=== PATIENT | male | born 1960 | race Caucasian/White ===

== ENCOUNTER → 2019-12-10 08:19 | Outpatient (BNVA) | payer OTHER, SELFPAY | PROVIDERS: Family Provider Family Medicine; PCP Family Medicine; Visit Provider Urology | DX: N41.1 Chronic prostatitis (principal); Z12.5 Encounter for screening for malignant neoplasm of prostate; N40.1 Benign prostatic hyperplasia with lower urinary tract symptoms; N13.8 Other obstructive and reflux uropathy | CPT/HCPCS: 81001 ==

== ENCOUNTER 2019-12-23 14:34 | Outpatient (CLI) | payer OTHER, SELFPAY ==
--- NOTE | 2019-12-23 14:40 | XR_ITS ---
WS: [id number] PROCEDURE: XR chest 2V* [id number] CLINICAL INFORMATION: COUGH COMPARISON: None. FINDINGS: Heart: Normal cardiac silhouette. Lungs: Lungs are clear. No consolidation or pleural fluid. Mild chronic emphysematous changes. Bones: Normal visualized bony structures. XR/XR chest 2V* [id number] IMPRESSION: Mild chronic emphysematous changes. No acute pulmonary infiltrates.
== END 2019-12-23 14:35 | disposition home or self-care (01) ==
PROVIDERS: Family Provider Family Medicine; PCP Family Medicine; Visit Provider Family Medicine
DX: R05 Cough (principal); J43.8 Other emphysema
CPT/HCPCS: 71046

== ENCOUNTER 2020-01-07 07:47 | Outpatient (CLI) | payer OTHER, SELFPAY ==
[2020-01-07 08:35] VITALS: O2SAT 98
--- NOTE | 2020-01-07 14:32 | PFTS_ITS ---
Date of Study:01/07/20 Date of Dictation: MECHANICS: Forced vital capacity (FVC) is normal. Forced expiratory volume in one second (FEV1) is normal. FEV1/FVC is normal. FLOW VOLUME LOOP: Normal. LUNG VOLUMES: Total lung capacity (TLC) is normal. Residual volume (RV) is normal. DIFFUSING CAPACITY FOR CARBON MONOXIDE: Normal. INTERPRETATION: The pulmonary function tests are . Lung volumes are normal. Gas exchange (DLCO) is normal. MTDD
== END 2020-01-07 07:48 | disposition home or self-care (01) ==
LOC: RT 07:48
PROVIDERS: PCP Family Medicine; Visit Provider Family Medicine
DX: R05 Cough (principal)
CPT/HCPCS: 94010; 94726; 94729

== ENCOUNTER 2021-07-05 14:41 | Outpatient (CLI) | payer OTHER, SELFPAY ==
[2021-07-05 15:24] LABS: Prostate Specific Antigen Scr 1.28 ng/mL (0-4)
== END 2021-07-05 14:42 | disposition home or self-care (01) ==
LOC: LAB 14:45
PROVIDERS: PCP Family Medicine; Visit Provider Urology
DX: Z12.5 Encounter for screening for malignant neoplasm of prostate (principal)
CPT/HCPCS: G0103

== ENCOUNTER → 2021-07-06 06:53 | Outpatient (BNVA) | payer OTHER, SELFPAY | PROVIDERS: PCP Family Medicine; Visit Provider Urology | DX: N40.1 Benign prostatic hyperplasia with lower urinary tract symptoms (principal) | CPT/HCPCS: 81003 ==

== ENCOUNTER 2022-04-03 09:28 | Outpatient (RCR) | payer OTHER, SELFPAY | END 2022-04-13 23:59 | disposition home or self-care (01) | LOC: SPT 09:28 | PROVIDERS: PCP Family Medicine; Visit Provider Family Medicine | DX: M54.50 Low back pain, unspecified (principal); M47.816 Spondylosis without myelopathy or radiculopathy, lumbar region | CPT/HCPCS: 97110; 97161 ==

== ENCOUNTER 2022-04-14 06:00 | Outpatient (RCR) | payer OTHER, SELFPAY | END 2022-05-07 10:47 | disposition home or self-care (01) | LOC: SPT 06:00 | PROVIDERS: PCP Family Medicine; Visit Provider Family Medicine | DX: M54.50 Low back pain, unspecified (principal); M47.816 Spondylosis without myelopathy or radiculopathy, lumbar region; M47.896 Other spondylosis, lumbar region | CPT/HCPCS: 97110 ==

== ENCOUNTER 2022-05-07 08:21 | Outpatient (CLI) | payer OTHER, SELFPAY ==
--- NOTE | 2022-05-07 08:45 | CT_ITS ---
WS: [id number] CT LUMBAR SPINE TECHNIQUE: Noncontrast CT of the lumbar spine with coronal and sagittal reformatted images. CLINICAL INFORMATION: chronic low back pain COMPARISON: None. DLP: 1429.[address] scans at [facility] use at least one of these dose optimization techniques: automated e xposure control; mA and/or kV adjustment per patient size (includes targeted exams where dose is matc hed to clinical indication); or iterative reconstruction. FINDINGS: Mild lumbar curve. No acute compression. Endplate Schmorl's nodes in the lumbar spine. Disc space veronica rowing worse L5-S1. No acute appearing compression fractures. L1-L2: Mild facet arthropathy. Spinal canal and foramen are patent. No significant disc bulging. L2-L3: Mild facet arthropathy. Spinal canal and foramen are patent L3-L4: Mild annular bulging with a tiny shallow central protrusion. Slight narrowing of the LEFT suba rticular recess. Mild central canal stenosis. Mild LEFT foraminal narrowing. Mild facet arthropathy. L4-L5: Mild annular bulging. Mild central canal stenosis. Mild facet arthropathy ligamentum flavum hy pertrophy. Slight impingement traversing L5 nerve roots bilaterally. Moderate RIGHT foraminal narrowi ng. L5-S1: Disc osteophyte complex with endplate ridging. Moderate LEFT foraminal narrowing with slight i mpingement on the exiting LEFT L5 nerve root. RIGHT foramen is patent. Mild to moderate facet arthrop athy. Adrenal glands are normal. Normal caliber abdominal aorta. Expansile bone remodeling with trabecular thickening RIGHT ilium and ischium unchanged since 2012 lik add[address]. CT/CT lumbar spine wo con* [id number] IMPRESSION: 1. Mild lumbar curve convex LEFT. No acute compression fractures. 2. Mild central canal stenosis L3-L4 with impingement on the LEFT subarticular recess and traversing LEFT L4 nerve root. 3. Mild central canal stenosis L4-L5 with facet arthropathy ligamentum flavum hypertrophy. 4. Moderate bony foraminal narrowing RIGHT L4-L5 and LEFT L5-S1.
== END 2022-05-07 08:22 | disposition home or self-care (01) ==
PROVIDERS: PCP Family Medicine; Visit Provider Family Medicine
DX: M47.816 Spondylosis without myelopathy or radiculopathy, lumbar region (principal); M48.061 Spinal stenosis, lumbar region without neurogenic claudication; M48.07 Spinal stenosis, lumbosacral region
CPT/HCPCS: 72131

== ENCOUNTER 2023-04-09 10:27 | Day surgery (SDC) | payer OTHER, SELFPAY ==
[2023-04-08 12:09] VITALS: BMI 29.9
[2023-04-09] VITALS (9 sets, daily range): BP systolic 116–138; BP diastolic 66–90; PULSE 91–120; RESP 18–24; TEMP 36.3–36.6; O2SAT 92–97; BMI 29.9
[2023-04-09] MEDS: sodium chloride 0.9% 1,000 ML 30 ML IV (11:09)
--- NOTE | 2023-04-09 11:29 | ANES.PREANE2 ---
Pre-Anesthetic Assessment Height/Weight: Height 1.98 m Weight 117.48 kg O2 Del Method Room Air 04/09/23 10:48 Preop Diagnosis: Lower gingival lesion behind incisor Operation Date: 04/09/23 12:00 Proposed Procedures p excision of intraoral gingival lesion-[id number],with frozen section K06.8(Not Applicable) - Terry Chan MD Was Beta Zulay taken within 24 hours: N/A Was Clonidine taken within 24 hours: N/A Last intake: Intake Last Liquid Date 04/08/23 Last Liquid Time 22:00 Last Solid Date 04/08/23 Last Solid Time 22:00 Social Tobacco and No alcohol Chewing tobacco Exam alert, oriented x 3, clear to auscultation bilaterally and regular rate & rhythm Airway Submandibular: within normal limits Cervical ROM: within normal limits Mallampati: Class III History/ROS No significant history except as noted and No significant complaints Pulmonary Sleep Apnea CV/HEM Hypertension GI Gastroesophageal Reflux Disease Anesthetic Plan ASA status: 2 Anesthesia: General Risk of > 500 ml blood loss (7ml/kg in children): No Medications/Allergies Home Medications Medication Instructions Recorded Confirmed Last Taken Type auto titrating cpap #1 ea 03/12/23 03/27/23 Unknown Rx escitalopram oxalate 10 mg tablet 10 mg PO DAILY stress #90 tabs 03/12/23 04/09/23 04/09/23 Rx losartan 50 mg tablet 50 mg PO DAILY 04/08/23 04/08/23 04/08/23 History pantoprazole 40 mg tablet,delayed 40 mg PO DAILY 04/08/23 04/08/23 04/08/23 History release tamsulosin 0.4 mg capsule 0.8 mg PO BEDTIME 04/08/23 04/08/23 04/08/23 History Allergies Allergy/AdvReac Type Severity Reaction Status Date / Time No Known Allergies Allergy Verified 04/08/23 12:03 Current Medications Generic Name Dose Route Start Last Admin Trade Name Freq PRN Reason Stop Dose Admin Sodium Chloride 1,000 mls @ 30 mls/hr 04/09/23 11:00 04/09/23 11:09 Sodium Chloride 0.9% IV 04/10/23 10:59 30 mls/hr .Q24H IVETH Administration PFSH Anesthesia Medical History BPH loc w urin obs/LUTS Chronic prostatitis Hx MRSA infection Screening PSA (prostate specific antigen) Testalgia Surgical History Hx of repair of left rotator cuff Hx of tonsillectomy Family History Father , at age 53 CAD (coronary artery disease) Heart attack Mother , at age 68 CHF (congestive heart failure) Social History Smoking and tobacco status: former smoker Alcohol intake: never Substance/Drug Use: unknown Adopted: No Caregiver/support person: No Lives independently: No Household members: spouse Marital status: Current occupational status: employed Current gender identity: Male Data Anesthesia Cardiac Studies: No Data to Display
--- NOTE | 2023-04-09 11:38 | W.PM.OPSUD ---
Surgery/Procedure H&P Update DATE OF PROCEDURE: April 09, 2023 DATE H&P PERFORMED: 03/27/23 H&P UPDATE INFORMATION: I have reviewed H&P completed within last 30 days, I have examined patient prior to procedure and No changes to prior documentation CHANGES TO PREVIOUS DOCUMENTATION: No changes PREOP DIAGNOSIS: Lower gingival lesion behind incisor PRIMARY INDICATION FOR PROCEDURE: Lower inner gingival lesion behind central incisors PLANNED PROCEDURE: Operation Date: 04/09/23 12:00 Proposed Procedures p excision of intraoral gingival lesion-72463,with frozen section K06.8(Not Applicable) - Terry Chan MD
[2023-04-09] MEDS: ceFAZolin 2,000 MG in sodium chloride 0.9% (plus) 50 ML 100 MG IV (11:59)
[2023-04-09] MEDS: oxymetazoline 0.05% Nasal Spray 15 mL 1 SPRAY NOSTRIL-B (12:47)
--- NOTE | 2023-04-09 12:56 | P.OP_ITS ---
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 This has been progressive and persistent and uncomfortable. Brief History: 62-year-old male patient has had an exophytic growth on the inner aspect of his gingiva of the mandible behind the central incisors which has been refractory to time and avoidance of traumatic foods. He is therefore being brought to the operating room to undergo excision of this lesion for diagnostic purposes. Frozen section will be utilized. This will be done under general anesthesia. The procedure its risks and complications have been explained and understood. These risks include bleeding infection scarring recurrence and need for additional treatment as well as anesthetic risks. With these things understood informed consent was granted and witnessed. Procedure: Description of procedure: The patient was placed on the operating table in supine position. Adequate general endotracheal tube anesthesia was obtained. A timeout was accomplished identifying the patient date of plan procedure allergies fire risk and medications given. With all in agreement the procedure continued. With the table rotated 90 degrees his eyes were taped shut and a head drape was applied in usual fashion. A dental glassware verifier was placed between the upper and lower dentition and opened. With the lower lip retracted downward and the tongue retracted upward the lesion in question was visible. It measured approximately 4 x 4 mm. This was excised with a 15 blade down to the dentition and surrounding tissue. The specimen was a resected and forwarded to pathology for frozen section. While that was pending pressure was applied with a sponge and then Afrin was applied and then finally bipolar cautery was used to control the bleeding completely. The pathology returned as a traumatic fibroma. With that known the area was suctioned clean. And the drapes were removed. The eyes were untaped and the patient was returned to anesthesia for wake-up and extubation. He tolerated the procedure well had an estimated blood loss of 5 mL and arrived in recovery in stable condition.
--- NOTE | 2023-04-09 13:59 | ANE.PACU2 ---
Inpatient post-anesthesia follow up: Airway intact: Yes Vital signs: Temperature 97.9 F Pulse Rate 99 Respiratory Rate 18 Blood Pressure 131/86 Pulse Oximetry 92 Oxygen Delivery Me thod Room Air Oxygen Flow Rate 7 Fraction of Inspir ed Oxygen Hydration adequate: Yes Nausea and vomiting: No Pain level: 3 Mental status: Baseline
== END 2023-04-09 14:25 | disposition home or self-care (01) ==
PROVIDERS: PCP Family Medicine; Visit Provider Otolaryngology
PROC: (CPT 41108; principal; 2023-04-09 12:00)
DX: K06.8 Other specified disorders of gingiva and edentulous alveolar ridge (principal); G47.30 Sleep apnea, unspecified; I10 Essential (primary) hypertension; K21.9 Gastro-esophageal reflux disease without esophagitis; N40.1 Benign prostatic hyperplasia with lower urinary tract symptoms; N13.8 Other obstructive and reflux uropathy; Z86.14 Personal history of Methicillin resistant Staphylococcus aureus infection; Z87.891 Personal history of nicotine dependence
CPT/HCPCS: 41108; 88305; 88331; 88342; J0690; J1100; J2405; J2704; J2710; J3010; J3490; J3535; J7030

== ENCOUNTER → 2023-08-23 09:35 | Outpatient (BNVA) | payer OTHER, SELFPAY | PROVIDERS: PCP Family Medicine; Visit Provider Family Medicine Adult Medicine | DX: R52 Pain, unspecified (principal); J10.1 Influenza due to other identified influenza virus with other respiratory manifestations | CPT/HCPCS: 87400 ==

== ENCOUNTER → 2024-04-28 08:30 | Outpatient (BNVA) | payer OTHER, SELFPAY | PROVIDERS: PCP Family Medicine; Visit Provider Family Medicine | DX: Z00.00 Encounter for general adult medical examination without abnormal findings (principal); I10 Essential (primary) hypertension; N40.1 Benign prostatic hyperplasia with lower urinary tract symptoms; R53.83 Other fatigue; G47.33 Obstructive sleep apnea (adult) (pediatric); Z82.49 Family history of ischemic heart disease and other diseases of the circulatory system; E03.9 Hypothyroidism, unspecified | CPT/HCPCS: 80053; 80061; 84443; 85025; G0103 ==

== ENCOUNTER 2024-10-22 14:34 | Outpatient (CLI) | payer SELFPAY ==
--- NOTE | 2024-10-22 16:30 | CT_ITS ---
WS: [id number] CT CALCIUM SCORE REASON FOR VISIT: I10 - Essential (primary) hypertension; Coronary artery disease risk assessment COMPARISON: None TECHNIQUE: Noncontrast coronary CT in combination with quantitative analysis performed on a separate workstation were used to determine CACS (Agatston score) TOTAL EXAM DOSE: 144.43 mGy.cm ECG GATING: Prospective SCAN RANGE: Pulmonary artery bifurcation to Inferior aspect of heart COMPLICATIONS: None FINDINGS: Technical Quality/Examination Quality: Good Limitaiton: None OVERALL SCORES Total calcium score: 1 Total volume score: 2 mm3 Percentile: 0-25th percentile for males between the ages of 65 and 69 ARTERY SCORES Left main coronary artery: 0 Left anterior descending artery: 0 Left circumflex artery: 0 Right coronary artery: 1 OTHER FINDINGS: Mediastinum: Normal. Thoracic aorta: Normal. Lungs: Normal. Upper Abdomen: Tiny esophageal hiatal hernia. MINIMAL: 1-10 MILD: 11-100 MODERATE: 101-400 SEVERE:>400 CT/CT heart w calcium score 71475 IMPRESSION: Minimal coronary artery disease. GRADING OF CORONARY ARTERY DISEASE (BASED ON TOTAL CALCIUM SCORE) NO EVIDENCE OF CAD: 0 calcium score
== END 2024-10-22 14:35 | disposition home or self-care (01) ==
PROVIDERS: PCP Family Medicine; Visit Provider Family Medicine
DX: I10 Essential (primary) hypertension (principal); Z82.49 Family history of ischemic heart disease and other diseases of the circulatory system; R53.83 Other fatigue
CPT/HCPCS: 75571

== ENCOUNTER → 2025-06-01 09:42 | Outpatient (BNVA) | payer MEDICARE, BC, SELFPAY | PROVIDERS: PCP Family Medicine; Visit Provider Family Medicine | DX: Z12.5 Encounter for screening for malignant neoplasm of prostate (principal); N41.1 Chronic prostatitis | CPT/HCPCS: G0103 ==

== ENCOUNTER → 2025-06-18 08:57 | Outpatient (BNVA) | payer MEDICARE, BC, SELFPAY | PROVIDERS: PCP Family Medicine; Visit Provider Family Medicine | DX: Z00.00 Encounter for general adult medical examination without abnormal findings (principal); I10 Essential (primary) hypertension | CPT/HCPCS: 80053; 80061; 85025 ==